=== PATIENT | female | born 1990 | race Two or more races ===

== ENCOUNTER → 2021-07-23 | Emergency (ER) | payer OTHER ==
[~2021-07-23] VITALS: Ht 160 cm; Wt 72.6 kg
[~2021-07-23] MED LIST: KETO10TA2 PO
== END | disposition home or self-care (01) ==
LOC: ER 22:01
DX: N83.201 Unspecified ovarian cyst, right side (principal)

== ENCOUNTER 2021-07-24 17:05 | Emergency (ER) | payer OTHER ==
[~2021-07-24] VITALS: Ht 160 cm; Wt 72.6 kg
[2021-07-24] MEDS ORDERED: KETO10TA2 PO (22:01)
== END 2021-07-24 22:20 | disposition home or self-care (01) ==
LOC: ER 17:05
DX: N83.201 Unspecified ovarian cyst, right side (principal)
CPT/HCPCS: 74177; Q9965